=== PATIENT | male | born 1975 | race Caucasian/White ===

== ENCOUNTER 2021-08-05 20:09 | Emergency (ER) | payer BC ==
[~2021-08-05] VITALS: Ht 182.9 cm; Wt 111.0 kg
[2021-08-05] MEDS ORDERED: FLUOXETINE40 MG PO (20:39)
[2021-08-05] MEDS ORDERED: VENLAFAXINE HCL75 M1 PO (20:40)
[2021-08-05] MEDS ORDERED: BUPROPION HCL150 M2 PO (20:41)
[2021-08-05 20:56] LABS: GFR 55 ML/MIN (>=60 (CALC)); GFR FOR AFR.AMER. > 60 ML/MIN (>=60 (CALC))
[2021-08-05 20:58] LABS: HEMATOCRIT 42.7 % (39.0-50.0); HEMOGLOBIN 14.1 g/dl (14.0-18.0); IMMATURE GRANULOCYTES 0.2 % (0.0-5.0); MEAN CELL VOLUME 91.6 fL CALC (80.0-100.0); MEAN CORPUSCULAR HGB 30.3 pG CALC (26.0-32.0); NEUT# 5.98 thou/uL (1.82-7.42); RED BLOOD COUNT 4.66 mill/uL (4.70-6.10); RED CELL DISTRI WIDTH 12.7 % (11.5-15.5)
[2021-08-05 21:16] LABS: ACT PARTIAL THROMBO TIME 22.7 SECONDS (20.0-32.5); ALBUMIN 4.4 g/dL (3.2-5.0); ALKALINE PHOSPHATASE 71 u/l (38-126); ANION GAP 9 (6-22 (CALC)); BILIRUBIN, TOTAL 0.4 mg/dL (0.0-1.4); BUN 17 mg/dL (9-20); BUN/CREATININE RATIO 13 (12-20 (CALC)); CARBON DIOXIDE 34 mmol/l (22-30); CHLORIDE 104 mmol/l (95-108); CREATININE 1.2 mg/dL (0.7-1.3); ETHYL ALCOHOL 120 mg/dl (0-30); GFR > 60 ML/MIN (>=60 (CALC)); GFR FOR AFR.AMER. > 60 ML/MIN (>=60 (CALC)); LIPASE 55 u/l (23-300); SGOT/AST 46 u/l (17-59); SODIUM 144 mmol/l (137-146); TOTAL PROTEIN 7.5 g/dL (6.3-8.2)
[2021-08-05 21:49] LABS: URINE BILIRUBIN - DIPSTICK NEGATIVE (NEGATIVE); URINE BLOOD DIPSTICK NEGATIVE (NEGATIVE); URINE COLOR YELLOW; URINE GLUCOSE - DIPSTICK NEGATIVE (NEGATIVE); URINE KETONE NEGATIVE (NEGATIVE); URINE LEUK ESTERASE NEGATIVE (NEGATIVE); URINE PH 6.5 (4.5-8.0); URINE PROTEIN - DIPSTICK NEGATIVE (NEG-TRACE); URINE SPECIFIC GRAVITY <=1.005; URINE UROBILINOGEN - DIPSTICK 0.2 E.U./dL (0.2)
[2021-08-05 21:50] LABS: URINE NITRITE - DIPSTICK NEGATIVE (Negative)
[2021-08-05 22:03] VITALS: BP 133/85
[2021-08-05] MEDS ORDERED: IBUPROFEN600 MG PO (22:10)
== END 2021-08-05 22:15 | disposition home or self-care (01) | DRG 605 ==
LOC: ED 20:09
DX: S20.214A Contusion of middle front wall of thorax, initial encounter (principal); S20.314A Abrasion of middle front wall of thorax, initial encounter; S70.312A Abrasion, left thigh, initial encounter; T63.461A Toxic effect of venom of wasps, accidental (unintentional), initial encounter; F41.9 Anxiety disorder, unspecified; W30.89XA Contact with other specified agricultural machinery, initial encounter; Y93.H9 Activity, other involving exterior property and land maintenance, building and construction; Y92.73 Farm field as the place of occurrence of the external cause
CPT/HCPCS: Q9967